=== PATIENT | male | born 1965 | race Caucasian/White ===

== ENCOUNTER → 2021-11-06 10:37 | Outpatient (CLI) | payer OTHER, MEDICAID, SELFPAY ==
[2021-11-06 12:48] LABS: COVID-19 CEPHEID PCR (VTM/NP) Negative (Negative)
== END ==
PROVIDERS: Family Provider Family Medicine; PCP Family Medicine; Visit Provider Family Medicine Sleep Medicine
DX: Z20.822 Contact with and (suspected) exposure to COVID-19 (principal)
CPT/HCPCS: C9803; U0003; U0005

== ENCOUNTER 2021-12-03 10:30 | Outpatient (RCR) | payer OTHER, MEDICAID, SELFPAY ==
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
--- NOTE | 2021-10-17 12:05 | PT.OPPOC ---
Physical, Occupational & Speech Therapy At [facility] Current Diagnoses Other abnormalities of gait and mobility (12/03/21) Weakness (12/03/21) Unspecified intracranial injury with loss of consciousness of unspecified duration, sequela (12/03/21) Fracture of unspecified parts of lumbosacral spine and pelvis, sequela (12/03/21) Unspecified fracture of the lower end of left radius, subsequent encounter for closed fracture with routine healing (12/03/21) Displaced fracture of base of second metacarpal bone, right hand, subsequent encounter for fracture with routine healing (12/03/21) Unspecified fracture of lower end of right femur, subsequent encounter for closed fracture with routine healing (12/03/21) Displaced bicondylar fracture of left tibia, sequela (12/03/21) Other fracture of right lower leg, subsequent encounter for closed fracture with routine healing (12/03/21) Visit Care Team Role Provider Type Dmitry Salamanca MD Attending Provider Non-Staff Family Provider Primary Care Provider Referring Provider Specialty: Family Practice Address: [address] [place] [address], [address], [place], [place], [facility] Email: Plan Of Care PT-OP-T Assessment and Plan Start: 07/17/21 16:04 Freq: Status: Active Protocol: Document 12/25/21 09:33 DCW (Rec: 10/17/21 12:02 DCW [id number]) Physical Therapy Assessment Goals Three Impairment Pt demonstrates disruption to normal gait pattern Test Driller Goal (LTG) Pt to display no foot drop or steppage gait over the course of ambulating in clinic without an assistive device for three straight visit to display improved gait pattern. LTG Duration Met Two Impairment Pt ambulates 468' during a 6 minute walk test Short Term Goal (STG) A gait speed of less than 1.97 feet/sec is indicative of increased risk of further functional decline. Pt should demonstrate an ability to ambulate at least 709' using a FWW during a 6MWT to show improvement with gait speed and activity tolerance STG Duration Met - 838' Senior Living Goal (LTG) Pt to increase distance during 6MWT by at least 180' to 1018 ' to demonstrate independence in gait and return to community ambulation LTG Duration One Impairment Pt does not have an appropriate home exercise program Short Term Goal (STG) Pt to be independent and compliant with an appropriate HEP STG Duration - inconsistent Assessment Summary Assessment Gaiit and balance greatly improved since initial evaluation, pt no longer displaying foot drop, significant imptovement with tandem and SLS, good improvement with LE and mission worker strength. Left LE and mission worker still significantly lagging behind right, but still showing good improvement. Pt should benefit from continued skilled therapy focusing on balance, activtiy tolerance, and strength. Physical Therapy Plan Frequency and Duration Frequency of Treatment 2x/Week Duration of Treatment Three months Plan of Care Start Date 10/17/21 Plan of Care End Date 01/16/22 Therapeutic Interventions Therapeutic Interventions Aquatic Therapy,Balance Training,Gait Training,Home Exercise Program,Manual Therapy,Neuromuscular Re- education,Patient/Caregiver Education,Self-Care/Home Management,Soft Tissue Mobilization,Therapeutic Activities,Therapeutic Exercises Next Visit Focus/Plan Next Note Type Treatment Note Next Visit Plan Continue dynamic gait and balance. POC: Balance, gait training, strengthening Plan of Care Dates Plan of Care Start Date 10/17/21 Plan of Care End Date 01/16/22 Electronically Signed by: Elias Pinon, PT 12/25/21 0934 If you are in agreement with this Plan of Care, please return a signed and dated copy. I have reviewed this Plan of Care and certify that the skilled therapy services above are required to meet the patient?s needs. Physician Signature Date Printed Name and Credentials Clinical Instructor Signature Printed Name and Credentials
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
--- NOTE | 2021-12-26 15:58 | PT-OP ANOTE ---
Pt cancelled yesterday and 12/27 due to insurance need authorization. Will make more appts when allowed.
--- NOTE | 2022-01-01 13:58 | PT-OP ANOTE ---
Pt did not show for today's appt, left message regarding missed appt and reminded next appt on 01/08 at 1345. Offered PATIENT SERVICE REP [facility] then Fri am openings if wanted to call back and schedule. Reminded calling >24 hrs to cancel to not ensure not getting a NS charge.
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
== END 2022-03-10 13:16 ==
LOC: PHYS 10:30
PROVIDERS: Family Provider Family Medicine; PCP Family Medicine; Referring Provider Family Medicine; Visit Provider Family Medicine
DX: S62.310D Displaced fracture of base of second metacarpal bone, right hand, subsequent encounter for fracture with routine healing (principal); S72.401D Unspecified fracture of lower end of right femur, subsequent encounter for closed fracture with routine healing; S52.502D Unspecified fracture of the lower end of left radius, subsequent encounter for closed fracture with routine healing; S82.142S Displaced bicondylar fracture of left tibia, sequela; S82.891D Other fracture of right lower leg, subsequent encounter for closed fracture with routine healing; S32.9XXS Fracture of unspecified parts of lumbosacral spine and pelvis, sequela; S06.9X9S Unspecified intracranial injury with loss of consciousness of unspecified duration, sequela; R53.1 Weakness; R26.89 Other abnormalities of gait and mobility
CPT/HCPCS: 97110; 97112; 97116; 97163; 97530